=== PATIENT | female | born 1960 | race Caucasian/White ===

== ENCOUNTER 2020-09-09 14:22 | Emergency (ER) | payer OTHER ==
[2020-09-09 15:38] LABS: BASOPHIL 0.6 % (0-2); EOSINOPHIL 1.4 % (0-5); HCT 38.8 % (37.0-47.0); HGB 12.4 g/dl (12.5-16.0); LYMPHOCYTE 30.3 % (15-48); MCV 93.9 fL (78.0-100.0); MONOCYTE 7.9 % (0-12); NEUTROPHIL 59.5 % (41-80); NRBC 0; PLT 287 K/uL (150-400); RBC 4.13 M/uL (4.20-5.40); RDW 14.6 % (11.5-14.0)
[2020-09-09 15:48] LABS: BILIRUBIN NEGATIVE (NEGATIVE); BLOOD NEGATIVE Ery/uL (NEGATIVE); CLARITY CLEAR (CLEAR); COLOR YELLOW (YELLOW); GLUCOSE (U) NORMAL (NORMAL); LEUKOCYTES NEGATIVE Leu/uL (NEGATIVE); NITRITE NEGATIVE (NEGATIVE); PROTEIN NEGATIVE (NEGATIVE); SPECIFIC GRAVITY 1.025 (1.001-1.030); UROBILINOGEN 0.2 mg/dL (0.2-1.0); pH 5.5 (5.0-9.0)
[2020-09-09 15:53] LABS: ALBUMIN 3.6 g/dL (3.4-5.0); BILIRUBIN - TOTAL 0.2 mg/dL (0.2-1.0); BUN/CREAT RATIO (CALC) 18.1 RATIO; CREATININE 0.72 mg/dL (0.51-0.95); GLOBULIN (CALCULATION) 3.6 g/dL; POTASSIUM 3.9 mmol/L (3.5-5.1); TOTAL PROTEIN 7.2 g/dL (6.4-8.2)
[2020-09-09] MEDS ORDERED: CYCLOBENZAPRINE10 MG PO (17:36)
[2020-09-09] MEDS ORDERED: NAPROXEN500 MG PO (17:36)
[2020-11-18] MEDS ORDERED: GABAPENTIN100 MG PO (11:31)
[2021-02-05] MEDS ORDERED: PREGABALIN25 MG PO (10:55)
== END 2020-09-09 17:52 | disposition home or self-care (01) ==
LOC: FER 14:22
PROVIDERS: Emergency Medicine
DX: M51.36 Other intervertebral disc degeneration, lumbar region (principal); M51.26 Other intervertebral disc displacement, lumbar region; E11.9 Type 2 diabetes mellitus without complications; I25.10 Atherosclerotic heart disease of native coronary artery without angina pectoris; E66.9 Obesity, unspecified; Z95.1 Presence of aortocoronary bypass graft
CPT/HCPCS: 36415; 72131; 80053; 81003; 85025; J1885